=== PATIENT | female | born 1995 | race Caucasian/White ===

== ENCOUNTER → 2017-12-07 | Day surgery (SDC) | payer BC ==
[~2017-12-07] MED LIST: FENTANYL CITRATE/PF 100MCG/2 ML INJ ONE; MIDAZOLAM HCL 2 MG/2 ML VIAL ONE; PANTOPRAZOLE 40 MG 10ML VIAL ONE; PROPOFOL IV EMULSION 10 MG/ML 50 ML VIAL ONE
--- NOTE | 2017-12-07 11:22 | Operative Report ---
DATE OF PROCEDURE: December 07, 2017 REFERRING PHYSICIAN: Dr. Katy Thomas PROCEDURES PERFORMED 1. Esophagogastroduodenoscopy with biopsies. 2. Colonoscopy with biopsies. INDICATIONS FOR EGD: Dyspepsia. INDICATIONS FOR COLONOSCOPY: Lower abdominal pain, rectal bleeding. MEDICATION: Patient was done under MAC. Please see anesthesiologist's note. PROCEDURE: With the patient in the left lateral decubitus position, the flexible fiberoptic Olympus gastroscope was introduced into the esophagus under direct visualization without any difficulty. There was some patchy, intense erythema noted in the distal esophagus. There was a focal nodularity noted at the GE junction that was biopsied. The scope was then advanced with ease into the stomach. Mucosa overlying the antrum and the body revealed some patchy erythema and low-grade to moderate edema, and biopsies were obtained and sent to stain for H. pylori. Pylorus appeared to be of normal contour and shape. It was intubated with ease, and the scope was advanced all the way to the 2nd portion of the duodenum. The scope was then withdrawn slowly. Mucosa overlying the proximal 2nd portion and the duodenal bulb appeared to be within normal limits. The scope was then withdrawn back into the stomach and retroflexed. The mucosa overlying the fundus and the cardia appeared to be within normal limits. The scope was then straightened out. It was subsequently withdrawn. Patient tolerated the procedure well. IMPRESSION 1. Distal esophagitis. 2. Focal nodularity at gastroesophageal junction, biopsied. 3. Gastritis, biopsied. Biopsies sent to stain for H. pylori. PLAN: Follow up histology. Initiate Protonix 40 mg 1 p.o. q.a.m. a.c. The patient was then turned around. After adequate lubrication of the anal canal, a flexible fiberoptic Olympus colonoscope was inserted into the rectum with ease and advanced all the way to the cecum. It was then withdrawn slowly. Mucosa overlying the cecum, ascending, transverse and descending grossly appeared to be within normal limits. There was some patchy intense erythema and low-grade edema noted in the sigmoid colon, and biopsies were obtained. The rectum grossly appeared to be within normal limits. The scope was then retroflexed into the distal rectum, and the area around the dentate line appeared to be within normal limits. The scope was then straightened out. It was subsequently withdrawn. Some external hemorrhoids were noted on the way out. The patient tolerated the procedure well. IMPRESSION 1. Sigmoiditis, mild, patchy, biopsied. 2. External hemorrhoids, none actively bleeding. PLAN: Follow up histology. Initiate high-fiber, low-fat diet. Initiate high-fiber supplement. Start MiraLAX 17 grams in a glass of water p.o. daily and hydrocortisone 25-mg suppositories b.i.d. times 10 days, then p.r.n. Job#: [id number]
== END | disposition home or self-care (01) ==
LOC: OR 06:49 → EDBD 08:30
PROVIDERS: ATTEND Internal Medicine Gastroenterology
DX: K52.9 Noninfective gastroenteritis and colitis, unspecified (principal); K29.70 Gastritis, unspecified, without bleeding; K59.00 Constipation, unspecified; K20.9 Esophagitis, unspecified; K22.8 Other specified diseases of esophagus; K64.4 Residual hemorrhoidal skin tags; Z88.0 Allergy status to penicillin
CPT/HCPCS: 43239; 45380; 81025; J2250; 45378

== ENCOUNTER → 2018-03-21 | Outpatient (CLI) | payer BC ==
--- NOTE | 2018-03-21 12:44 | Diagnostic Imaging Report ---
EXAM: US ABDOMEN COMPLETE DATE: 03/21/2018 10:28 AM INDICATION: Lower abdominal pain COMPARISON: None TECHNIQUE: Transverse and longitudinal bledsoe scale and color doppler sonographic images of the upper abdomen were obtained. FINDINGS: LIVER Measures 15.4 cm in the right midclavicular line. Increased echogenicity of the liver with normal contour, no masses. SPLEEN Measures 11.1 cm in maximum diameter. Normal echogenicity, no masses. GALLBLADDER No gallbladder wall thickening, distension, stone, or pericholecystic fluid. Negative reported sonographic Alva's sign. BILE DUCTS No intra nor extra-hepatic biliary dilation. Common bile duct measures 0.3 cm PANCREAS: Visualized portions are normal. RIGHT KIDNEY: 10.1 cm Echogenicity: Normal Collecting System: No hydronephrosis Stones: None Mass: None LEFT KIDNEY: 11.1 cm Echogenicity: Normal Collecting System: No hydronephrosis Stones: None Mass: None Bilateral parapelvic cysts are noted. VESSELS: Aorta: Visualized portions are within normal size limits Inferior Vena Cava: Visualized portions are normal Main Portal Vein: 1.6 cm, normal size with hepatopetal flow. FREE FLUID: None IMPRESSION: Hepatic steatosis. No sonographic evidence of cholecystitis. Signed by: Dr. Mona Griffiths MD on 03/21/2018 12:41 PM
== END ==
LOC: US 10:17
PROVIDERS: ATTEND Internal Medicine Gastroenterology
DX: R10.30 Lower abdominal pain, unspecified (principal)
CPT/HCPCS: 76700